=== PATIENT | male | born 1955 | race Caucasian/White ===

== ENCOUNTER → 2017-10-25 | Outpatient (CLI) | payer OTHER | END | disposition home or self-care (01) | LOC: KCIC 10:55 | DX: R05 Cough (principal); R06.2 Wheezing | CPT/HCPCS: 71046 ==

== ENCOUNTER → 2018-01-28 | Outpatient (CLI) | payer OTHER ==
--- NOTE | 2018-01-28 16:28 | KCIC ---
CHEST PA LATERAL Clinical indications: Cough. Exposure to rodent. Comparison: October 25, 2017. Findings: No acute lung infiltrate or pleural effusion or pulmonary edema or lung mass or pneumothorax is seen. The heart size, pulmonary vasculature, mediastinum and both tres are unremarkable. Impression: No acute radiographic abnormality is seen. Electronically signed by: Kyler Vieira MD (01/28/2018 4:25 PM) [facility]
== END | disposition home or self-care (01) ==
LOC: KCIC 13:05
PROVIDERS: ATTEND Nurse Practitioner Family
DX: R05 Cough (principal)
CPT/HCPCS: 71046

== ENCOUNTER → 2018-08-26 | Day surgery (SDC) | payer OTHER ==
[~2018-08-26] MED LIST: HYDROmorphone 2 MG/ML VIAL IV PRN; IV RINGERS,LACTATED 1000ML 1,000 ML IV SCH; LIDOCAINE 1% PF 2 ML VIAL. ID PRN; LOSA-73 PO; MORPHINE SULFATE 2 MG/ML VIAL. IV PRN; ONDANSETRON PF 4 MG/2 ML VIAL. IV PRN; PROCHLORPERAZINE 10 MG/2 ML VIAL. IV PRN; PROPOFOL 40 ML IV ONE; fentaNYL PF VIAL 100 MCG/2 ML VIAL IV PRN
--- NOTE | 2018-08-26 12:50 | PDOC1 ---
History and Physical Date of Admission Date of Admission DATE: 08/26/18 TIME: 12:44 Identification/Chief Complaint Chief Complaint colon cancer screening Source Source: Chart review, Patient History of Present Illness History of Present Illness 62 y/o male here for CRC screening. No prior. No D, C, M. Occasional minor rectal bleeding x years attributed to hemorrhoids. Wt/appetite OK. No N, V. GIFH negative. No HB, dysphagia, PUD, liver or pancreatic history. S/p colin. Former smoker. Occasional alcohol. Past Medical History Cardiovascular: HTN Musculoskeletal: Other (Lopes's neuroma) Past Surgical History Past Surgical History: Other (excision Lopes's neuroma) Family History Family History: Coronary Artery Disease, Hypertension Social History Smoke: Quit ALCOHOL: occassional Drugs: None Current Medications Current Medications Current Medications Ondansetron HCl (Zofran) 4 mg PRN Q6HRS PRN IV NAUSEA/VOMITING; Start 08/26/18 at 07:00; Stop 08/27/18 at 06:59 Fentanyl Citrate (Fentanyl 2ml Vial) 25 mcg PRN Q5MIN PRN IV MILD PAIN; Start 08/26/18 at 07:00; Stop 08/27/18 at 06:59 Fentanyl Citrate (Fentanyl 2ml Vial) 50 mcg PRN Q5MIN PRN IV MODERATE TO SEVERE PAIN; Start 08/26/18 at 07:00; Stop 08/27/18 at 06:59 Morphine Sulfate (Morphine Sulfate) 1 mg PRN Q10MIN PRN IV SEVERE PAIN; Start 08/26/18 at 07:00; Stop 08/27/18 at 06:59 Ringer's Solution 1,000 ml @ 30 mls/hr Q24H IV Last administered on 08/26/18at 12:38; Start 08/26/18 at 07:00; Stop 08/26/18 at 18:59 Lidocaine HCl (Xylocaine-Mpf 1% 2ml Vial) 2 ml PRN 1X PRN ID PRIOR TO IV START ; Start 08/26/18 at 07:00; Stop 08/27/18 at 06:59 Hydromorphone HCl (Dilaudid) 0.5 mg PRN Q10MIN PRN IV SEV PAIN, Second choice; Start 08/26/18 at 07:00; Stop 08/27/18 at 06:59 Prochlorperazine Edisylate (Compazine) 5 mg PACU PRN PRN IV NAUSEA, MRX1; Start 08/26/18 at 07:00; Stop 08/27/18 at 06:59 Propofol 40 ml @ As Directed STK-MED ONCE IV ; Start 08/26/18 at 12:43; Stop at 12:44; Status DC Active Scripts Active Reported Losartan Potassium 50 Mg Tablet 50 Mg PO DAILY Allergies Allergies: Coded Allergies: No Known Drug Allergies (Unverified , 08/26/18) ROS Review of System Otherwise negative. Physical Exam General: Alert, Oriented X3, Cooperative, No acute distress Lungs: Clear to auscultation Heart: S1S2, RRR, no gallops, no murmurs Abdomen: Normal bowel sounds, Soft, No tenderness, No hepatosplenomegaly, No masses Rectal Exam: deferred (to procedure) Extremities: No cyanosis, No edema Skin: No significant lesion Neuro: Normal speech, Strength at 5/5 X4 ext, Normal tone, Sensation intact, Cranial nerves 3-12 NL, Reflexes 2+ Psych/Mental Status: Mental status NL, Mood NL Vitals Vitals Vital Signs Date Time Temp Pulse Resp B/P (MAP) Pulse Ox O2 Delivery O2 Flow Rate FiO2 08/26/18 12:30 97.7 66 18 94 97.7 VTE Prophylaxis Ordered VTE Prophylaxis Devices: No VTE Pharmacological Prophylaxi: No Assessment/Plan Assessment/Plan IMP: Average risk for CRC; here for screening. PLAN: colonoscopy. CHICO PULLIAM MD Aug 26, 2018 12:50
--- NOTE | 2018-08-26 13:18 | PDOC4 ---
PROCEDURE Procedure Colonoscopy/biopsies Indication: CRC screening Meds: per anesthesia Findings: JOSÉ LUIS: normal --'Scope advanced to cecum. Mucosa normal. Scattered diverticula, sigmoid. 2 , 3-4mm polyps mid-transverse, biopsied off. IH's on retroflex. Estrella. well. IMP: Small polyps Diverticulosis Internal hemorrhoids. REC: Resume home meds and diet. Await path. F/u with me in 2 weeks. Repeat exam pending pathology. CHICO PULLIAM MD Aug 26, 2018 13:18
[2018-08-26 13:32] VITALS: BP 132/58
--- NOTE | 2018-08-27 15:06 | PATHOLOGY ---
[facility] Accession Number: [id number] . 01 Material submitted: . colon - BIOPSY MID TRANSVERSE COLON POLYPS. Modifiers: mid, transverse . 01 Clinical history: . Screening . 02 Diagnosis: Colon biopsies, mid transverse colon polyps: - Tubular adenomas (2). (JPM:erasmo; 08/27/2018) QMS/08/27/2018 . 02 Comment: There is no high-grade dysplasia or evidence of malignancy. . 02 Electronically signed: . Thang Harrell MD, Pathologist NPI- [id number] . 01 Gross description: . Received in formalin labeled "Daniel Salguero, BX mid transverse colon polyps," are 2 segments of urbina soft tissue measuring 0.7 x 0.3 x 0.3 cm in aggregate dimensions and ranging from 0.3 to 0.4 cm in maximum dimension. The specimen is submitted entirely in cassette A1. (TSD; 08/26/2018) TOB/TOB . 02 Pathologist provided ICD-10: D12.3 . 02 CPT . 729454 Specimen Comment: A courtesy copy of this report has been sent to Specimen Comment: [phone], . Specimen Comment: Report sent to / DR CAMEJO Performed at: 01 [facility] [address], [place] [id number] MD Jose Lew MD Phone: [phone] Performed at: 02 [facility] [address] [place], [place] [id number] MD Thang Harrell MD Phone: [phone]
== END | disposition home or self-care (01) ==
LOC: SURG 12:01
PROVIDERS: ATTEND Internal Medicine Gastroenterology
DX: Z12.11 Encounter for screening for malignant neoplasm of colon (principal); D12.3 Benign neoplasm of transverse colon; K57.30 Diverticulosis of large intestine without perforation or abscess without bleeding; K64.0 First degree hemorrhoids; I10 Essential (primary) hypertension; Z87.891 Personal history of nicotine dependence; Z72.89 Other problems related to lifestyle; Z90.49 Acquired absence of other specified parts of digestive tract; Z98.890 Other specified postprocedural states; Z82.49 Family history of ischemic heart disease and other diseases of the circulatory system; Z79.899 Other long term (current) drug therapy
CPT/HCPCS: 45380; 88305; J2704